=== PATIENT | female | born 1970 | race Caucasian/White ===

== ENCOUNTER 2022-11-20 17:26 | Emergency (ER) | payer MEDICAID, OTHER ==
[~2022-11-20] VITALS: Ht 149.9 cm; Wt 53.1 kg
[~2022-11-20 17:26] MED LIST: IBUP1TAB13
[2022-11-20 17:35] VITALS: BP 100/57
--- NOTE | 2022-11-20 20:34 | NUR ---
Dr. Garces examining patient.
--- NOTE | 2022-11-20 20:54 | NUR ---
Patient taken to X-ray via WC.
[2022-11-20] MEDS ORDERED: NAPR-54 PO (21:23)
[2022-11-20 21:28] VITALS: BP 114/62
--- NOTE | 2022-11-20 21:28 | NUR ---
Patient discharged with v/s stable. Written and verbal after care instructions given and explained by Dr. Garces. Patient alert, oriented and verbalized understanding of instructions. Ambulatory with steady gait. All questions addressed prior to discharge. ID band removed. Patient advised to follow up with PMD. Rx of Naproxen given. Patient educated on indication of medication including possible reaction and side effects. Opportunity to ask questions provided and answered.
== END 2022-11-20 21:28 | disposition home or self-care (01) ==
LOC: MED 17:26
DX: S93.402A Sprain of unspecified ligament of left ankle, initial encounter (principal); S93.401A Sprain of unspecified ligament of right ankle, initial encounter; X58.XXXA Exposure to other specified factors, initial encounter; Y93.89 Activity, other specified; Y92.89 Other specified places as the place of occurrence of the external cause; Y99.8 Other external cause status
CPT/HCPCS: 73610; 73620; 99284